=== PATIENT | male | born 1950 | race Caucasian/White ===

== ENCOUNTER → 2016-02-27 | Outpatient (REF) | payer OTHER ==
[~2016-02-27] MED LIST: ACET50TAOT PO; ADV250INH INH; ALBU17IN INH; ALBU83IN INH; AMBI10TA PO; BIAX1TAB PO; CEFD1CAP8 PO; CEFT500T PO; CEFU250T PO; DOUNEB; DOXY100T16 PO; FLON0.054; FLON1SPR; IPRASOL4 IN; IPRASOL4 NEB; NYST50SS SS; PRED10TA PO; PRED20TA PO; PRED20TAB PO; PRIL40CA PO; PRIM50TA2 PO; PROA1AER INH; SING10TA32 PO; TYLE325T5 PO; ZITH250T PO; [UNRECOGNIZED DRUG - OTHER]; ventolin neb INH
== END ==
LOC: M LAB REF 17:11
PROVIDERS: ATTEND Internal Medicine Pulmonary Disease
DX: J45.50 Severe persistent asthma, uncomplicated (principal)

== ENCOUNTER → 2016-04-09 | Outpatient (CLI) | payer OTHER ==
[~2016-04-09] MED LIST changes: -CEFT500T PO; +CEFT500T3 PO; -PRIM50TA2 PO; +PRIM50TA6 PO
== END ==
LOC: M WUC 09:10
PROVIDERS: ATTEND Internal Medicine Pulmonary Disease
DX: J45.50 Severe persistent asthma, uncomplicated (principal)

== ENCOUNTER → 2016-05-12 | Outpatient (CLI) | payer OTHER | LOC: M WUC 10:51 | PROVIDERS: ATTEND Internal Medicine Pulmonary Disease | DX: J45.50 Severe persistent asthma, uncomplicated (principal) ==

== ENCOUNTER → 2016-05-13 | Outpatient (CLI) | payer OTHER ==
[2016-05-13 10:11] LABS: MEAN CORPUSCULAR HEMOGLOBIN 28.7 pg (27.0-33.0); MEAN CORPUSCULAR VOLUME 84.4 fl (80.0-96.0); RED CELL DISTRIBUTION WIDTH 12.5 % (11.5-14.5); WHITE BLOOD COUNT 4.1 K/mm3 (4.0-10.0)
[2016-05-13 10:20] LABS: ALBUMIN 3.8 GM/DL (3.2-5.2); ALBUMIN/GLOBULIN RATIO 1.27 (1.00-1.93); ALKALINE PHOSPHATASE 54 U/L (45-117); ALT/SGPT 25 U/L (12-78); ANION GAP 5 MEQ/L (8-16); AST/SGOT 23 U/L (15-37); BILIRUBIN,TOTAL 0.4 MG/DL (0.2-1.0); BLOOD UREA NITROGEN 14 MG/DL (7-18); CARBON DIOXIDE LEVEL 32 MEQ/L (21-32); CHLORIDE LEVEL 108 MEQ/L (98-107); CHOLESTEROL LEVEL 223 MG/DL (<200); CREATININE FOR GFR 1.15 MG/DL (0.70-1.30); GLOMERULAR FILTRATION RATE > 60.0 (>49); GLUCOSE, FASTING 102 MG/DL (80-110); POTASSIUM SERUM 4.4 MEQ/L (3.5-5.1); SODIUM LEVEL 145 MEQ/L (136-145); TOTAL PROTEIN 6.8 GM/DL (6.4-8.2); TRIGLYCERIDES LEVEL 122 MG/DL (<150)
== END ==
LOC: M WUC 08:19
PROVIDERS: ATTEND Internal Medicine
DX: Z12.5 Encounter for screening for malignant neoplasm of prostate (principal); Z00.00 Encounter for general adult medical examination without abnormal findings

== ENCOUNTER → 2016-06-17 | Outpatient (CLI) | payer OTHER ==
--- NOTE | 2016-06-17 09:52 | REP ---
Chest two views HISTORY: Asthma Comparison: 03/19/2015 Linear densities are present in the lower lobes consistent with atelectasis or scar. The heart is normal in size. The pulmonary vasculature is normal in appearance. The bony structure is intact. IMPRESSION: Bibasilar atelectasis or scar. Signed by Clement Arvizu MD 06/17/2016 09:43 A
== END ==
LOC: M WUC 09:25
PROVIDERS: ATTEND Internal Medicine Pulmonary Disease
DX: J98.4 Other disorders of lung (principal); J45.50 Severe persistent asthma, uncomplicated

== ENCOUNTER → 2016-07-14 | Outpatient (CLI) | payer OTHER ==
--- NOTE | 2016-07-16 12:57 | SLEEPCENT ---
DATE OF PROCEDURE: 07/14/2016 ORDERED BY: Dr. Camejo Nocturnal polysomnography was performed for evaluation of sleep apnea syndrome symptoms in this patient with a history of excessive somnolence and nonrestorative sleep. 7 hours and 10 minutes of data were reviewed. There were 331 minutes of sleep identified. Sleep latency was normal at 13 minutes. Rapid eye movement (REM) latency was short at 52 minutes. Sleep architecture was fairly well preserved with 1 period of wake in the mid portion of the study. Overall sleep efficiency was 77%. There were 4 REM periods identified. Electrocardiogram (EKG) showed a sinus rhythm with a heart rate of 58 beats per minute. Heart rate ranged 50 to 80 beats per minute. Electroencephalogram (EEG) showed normal waveforms for awake and sleep. No focal events were identified. There were 57 respiratory events identified of 10 seconds in duration or greater for an apnea-hypopnea index of 10.3. The events were obstructive, not exclusive to sleep stage, but REM clustering was appreciated. There was no relationship to body posture. Arousals from respiratory events occurred 9.2 times per hour and oxygen desaturations were seen into the low 80s. There was snoring, but remaining measures of sleep physiology were otherwise normal. IMPRESSION: Obstructive sleep apnea syndrome (G47.33), apnea-hypopnea index of 10.3. RECOMMENDATION: The patient should be encouraged to return to the sleep disorder center for pressure therapy. In the interim, alcohol and sedative avoidance should be practiced and caution exercised during the operation of motor vehicles.
== END ==
LOC: M SLEEP 19:13
PROVIDERS: ATTEND Internal Medicine Pulmonary Disease
DX: G47.33 Obstructive sleep apnea (adult) (pediatric) (principal)

== ENCOUNTER → 2016-08-31 | Outpatient (CLI) | payer OTHER ==
[~2016-08-31] MED LIST changes: -BIAX1TAB PO; +BIAX500T13 PO; +CEFU1TAB20 PO; -CEFU250T PO; -PROA1AER INH; +PROAAER10 INH
--- NOTE | 2016-09-04 08:25 | SLEEPCENT ---
DATE OF STUDY: 08/31/2016 CPAP TITRATION ORDERED BY: Dr. Camejo Nocturnal polysomnography was performed for the titration of pressure therapy in this patient with obstructive sleep apnea syndrome apnea hypopnea index of 10. For testing, a ResMed Mirage FX nasal mask with standard size was used. 4 cm of water pressure were applied to the circuit and the lights were extinguished. 7 hours and 47 minutes of data were reviewed. Of these 389 minutes of sleep were identified. Sleep latency was short at 5 minutes. Rapid eye movement (REM) latency was normal at 82 minutes. Sleep architecture was improved with pressure therapy. There were 4 REM periods appreciated. Overall sleep efficiency 82.9%. The patient's EKG showed a sinus rhythm with an average heart rate of 62 beats per minute. EEG showed reasonably normal waveforms for awake and sleep. Respiratory events were best palliated with CPAP at pressure of about 6. There was little limb activity appreciated. IMPRESSION: Obstructive sleep apnea syndrome (G47.33). RECOMMENDATION: Nightly use of pressure therapy 6 cm of water. cc: Tyrese Meza MD
== END ==
LOC: M SLEEP 20:00
PROVIDERS: ATTEND Internal Medicine Pulmonary Disease
DX: R06.83 Snoring (principal)

== ENCOUNTER → 2016-09-12 | Outpatient (REF) | payer OTHER | LOC: M SFHCPLAZ 11:21 | PROVIDERS: ATTEND Nurse Practitioner Family | DX: R30.0 Dysuria (principal) ==

== ENCOUNTER → 2016-11-17 | Outpatient (CLI) | payer OTHER ==
[2016-11-17 13:50] LABS: MEAN CORPUSCULAR HEMOGLOBIN 27.9 pg (27.0-33.0); MEAN CORPUSCULAR HGB CONC 32.7 g/dl (32.0-36.5); MEAN CORPUSCULAR VOLUME 85.4 fl (80.0-96.0); RED CELL DISTRIBUTION WIDTH 12.5 % (11.5-14.5); WHITE BLOOD COUNT 4.2 10^3/uL (4.0-10.0)
[2016-11-17 14:50] LABS: ANION GAP 8 MEQ/L (8-16); BLOOD UREA NITROGEN 11 MG/DL (7-18); CALCIUM LEVEL 8.8 MG/DL (8.8-10.2); CARBON DIOXIDE LEVEL 28 MEQ/L (21-32); CHLORIDE LEVEL 104 MEQ/L (98-107); CREATININE FOR GFR 0.97 MG/DL (0.70-1.30); GLOMERULAR FILTRATION RATE > 60.0 (>49); GLUCOSE, FASTING 94 MG/DL (80-110); IMMUNOGLOBULIN G 1160 MG/DL (681-1648); POTASSIUM SERUM 4.6 MEQ/L (3.5-5.1); SODIUM LEVEL 140 MEQ/L (136-145)
== END ==
LOC: M SMT 10:08
PROVIDERS: ATTEND Nurse Practitioner Family
DX: D83.9 Common variable immunodeficiency, unspecified (principal)

== ENCOUNTER → 2017-01-12 | Outpatient (REF) | payer OTHER ==
[2017-01-12 12:25] LABS: MEAN CORPUSCULAR HEMOGLOBIN 27.8 pg (27.0-33.0); MEAN CORPUSCULAR HGB CONC 32.7 g/dl (32.0-36.5); PLATELET COUNT, AUTOMATED 263 10^3/uL (150-450); RED CELL DISTRIBUTION WIDTH 12.3 % (11.5-14.5); WHITE BLOOD COUNT 5.8 10^3/uL (4.0-10.0)
[2017-01-12 13:45] LABS: ALBUMIN 3.7 GM/DL (3.2-5.2); ALBUMIN/GLOBULIN RATIO 1.28 (1.00-1.93); ALKALINE PHOSPHATASE 49 U/L (45-117); ALT/SGPT 29 U/L (12-78); ANION GAP 5 MEQ/L (8-16); AST/SGOT 25 U/L (7-37); BILIRUBIN,TOTAL 0.3 MG/DL (0.2-1.0); BLOOD UREA NITROGEN 17 MG/DL (7-18); CALCIUM LEVEL 8.9 MG/DL (8.8-10.2); CARBON DIOXIDE LEVEL 30 MEQ/L (21-32); CHLORIDE LEVEL 106 MEQ/L (98-107); CREATININE FOR GFR 0.94 MG/DL (0.70-1.30); GLOMERULAR FILTRATION RATE > 60.0 (>49); GLUCOSE, FASTING 106 MG/DL (80-110); POTASSIUM SERUM 4.4 MEQ/L (3.5-5.1); SODIUM LEVEL 141 MEQ/L (136-145); TOTAL PROTEIN 6.6 GM/DL (6.4-8.2)
== END ==
LOC: M SFHCPLAZ 08:39
PROVIDERS: ATTEND Internal Medicine
DX: Z01.818 Encounter for other preprocedural examination (principal); J45.909 Unspecified asthma, uncomplicated

== ENCOUNTER 2017-02-06 07:23 | Day surgery (SDC) | payer OTHER ==
[~2017-02-06] VITALS: Ht 182.9 cm; Wt 86.2 kg
[~2017-02-06 07:23] MED LIST changes: +BUDE180INH INH; +FLOM5CAP PO; +SPIR12.9 INH; +ZOLP10TA2 PO
[2017-02-06] MEDS ORDERED: NS 1,000 ML IV ONE (07:45)
[2017-02-06] MEDS ORDERED: PROPOFOL 200 MG/20 ML VIAL As Ordered ONE ×2 (08:09→08:43)
--- NOTE | 2017-02-06 08:33 | ROOR ---
Patient Name: Neo Lopez Procedure Date: 02/06/2017 8:09 AM Date of : 1950 Age: 66 Room: [facility] Gender: Male Note Status: Finalized Procedure: Colonoscopy Indications: Screening for colorectal malignant neoplasm Providers: Luis DOYLE MD Referring MD: Tyrese Meza MD Requesting Provider: Medicines: Monitored Anesthesia Care Complications: No immediate complications. Procedure: Pre-Anesthesia Assessment: - The heart rate, respiratory rate, oxygen saturations, blood pressure, adequacy of pulmonary ventilation, and response to care were monitored throughout the procedure. The Colonoscope was introduced through the anus and advanced to the cecum, identified by appendiceal orifice and ileocecal valve. The colonoscopy was performed without difficulty. The patient tolerated the procedure well. The quality of the bowel preparation was inadequate. The bowel preparation used was SUPREP and Milk of magnesia. Findings: The perianal and digital rectal examinations were normal. (EXAM: Complete, PREP: Suboptimal) A 4 mm polyp was found in the anus. The polyp was sessile. The polyp was removed with a jumbo cold forceps. Resection and retrieval were complete. The exam was otherwise without abnormality. Impression: - (EXAM: Complete, PREP: Suboptimal) - One 4 mm polyp at the anus, removed with a jumbo cold forceps. Resected and retrieved. - The examination was otherwise normal. Recommendation: - Repeat colonoscopy in 1 year because the bowel preparation was suboptimal. Luis Doyle MD Luis DOYLE MD 02/06/2017 8:33:26 AM This report has been signed electronically. Number of Addenda: 0 Note Initiated On: 02/06/2017 8:09 AM Estimated Blood Loss: Estimated blood loss: none.
[2017-02-06 08:53] VITALS: BP 138/82
== END 2017-02-06 09:33 | disposition home or self-care (01) ==
LOC: M OPP 07:23
PROVIDERS: ATTEND Internal Medicine Gastroenterology
DX: Z12.11 Encounter for screening for malignant neoplasm of colon (principal); D12.9 Benign neoplasm of anus and anal canal; M19.90 Unspecified osteoarthritis, unspecified site; G47.00 Insomnia, unspecified; G25.0 Essential tremor; J45.909 Unspecified asthma, uncomplicated; D83.9 Common variable immunodeficiency, unspecified; G47.30 Sleep apnea, unspecified; Z98.1 Arthrodesis status; Z88.8 Allergy status to other drugs, medicaments and biological substances; Z79.899 Other long term (current) drug therapy; Z80.42 Family history of malignant neoplasm of prostate; Z80.3 Family history of malignant neoplasm of breast

== ENCOUNTER → 2017-05-01 | Outpatient (REF) | payer MEDICARE ==
[2017-05-01 12:23] LABS: HEMATOCRIT 46.2 % (42.0-52.0); HEMOGLOBIN 15.3 g/dl (14.0-18.0); MEAN CORPUSCULAR HEMOGLOBIN 27.8 pg (27.0-33.0); MEAN CORPUSCULAR HGB CONC 33.1 g/dl (32.0-36.5); PLATELET COUNT, AUTOMATED 252 10^3/uL (150-450); RED CELL DISTRIBUTION WIDTH 12.4 % (11.5-14.5); WHITE BLOOD COUNT 3.8 10^3/uL (4.0-10.0)
[2017-05-01 12:27] LABS: ALBUMIN 3.9 GM/DL (3.2-5.2); ALBUMIN/GLOBULIN RATIO 1.15 (1.00-1.93); ALKALINE PHOSPHATASE 65 U/L (45-117); ALT/SGPT 28 U/L (12-78); ANION GAP 6 MEQ/L (8-16); AST/SGOT 26 U/L (7-37); BILIRUBIN,TOTAL 0.4 MG/DL (0.2-1.0); BLOOD UREA NITROGEN 15 MG/DL (7-18); CALCIUM LEVEL 8.7 MG/DL (8.8-10.2); CARBON DIOXIDE LEVEL 30 MEQ/L (21-32); CHLORIDE LEVEL 107 MEQ/L (98-107); CHOLESTEROL LEVEL 213 MG/DL (<200); CHOLESTEROL RISK RATIO 3.491 (<5); CREATININE FOR GFR 0.89 MG/DL (0.70-1.30); GLOMERULAR FILTRATION RATE > 60.0 (>49); GLUCOSE, FASTING 104 MG/DL (70-100); HDL CHOLESTEROL 61 MG/DL (>40); LDL CHOLESTEROL 133.4 MG/DL (<100); MAGNESIUM LEVEL 2.5 MG/DL (1.8-2.4); NON-HDL-C 152 MG/DL; POTASSIUM SERUM 4.5 MEQ/L (3.5-5.1); PSA SCREENING 1.78 NG/ML (< 4.0); SODIUM LEVEL 143 MEQ/L (136-145); TOTAL PROTEIN 7.3 GM/DL (6.4-8.2); TRIGLYCERIDES LEVEL 93 MG/DL (<150)
== END ==
LOC: M SFHCPLAZ 10:15
DX: Z00.00 Encounter for general adult medical examination without abnormal findings (principal); D84.9 Immunodeficiency, unspecified; E78.00 Pure hypercholesterolemia, unspecified; J45.909 Unspecified asthma, uncomplicated; N40.1 Benign prostatic hyperplasia with lower urinary tract symptoms
CPT/HCPCS: 83735

== ENCOUNTER → 2017-05-08 | Outpatient (REF) | payer MEDICARE ==
[2017-05-08 13:38] LABS: APPEARANCE, URINE HAZY (CLEAR); BACTERIA, URINE AUTO NEGATIVE (NEGATIVE); BILIRUBIN, URINE AUTO NEGATIVE (NEGATIVE); BLOOD, URINE BLOOD NEGATIVE (NEGATIVE); COLOR, URINE AMBER (YELLOW); GLUCOSE, URINE (UA) AUTO NEGATIVE (NEGATIVE); KETONE, URINE AUTO NEGATIVE (NEGATIVE); LEUKOCYTE ESTERASE, URINE AUTO NEGATIVE (NEGATIVE); MUCUS, URINE SMALL (NEGATIVE); NITRITE, URINE AUTO NEGATIVE (NEGATIVE); PROTEIN, URINE AUTO NEGATIVE (NEGATIVE); RBC, URINE AUTO 2 /HPF (0-3); SPECIFIC GRAVITY URINE AUTO 1.023 (1.002-1.035); SQUAMOUS EPITHELIAL CELL UR AU 0 /HPF (0-6); UROBILINOGEN, URINE AUTO 0.2 mg/dL (0.0-2.0); WBC, URINE AUTO 2 /HPF (0-3)
== END ==
LOC: M SMT 12:53
DX: N40.1 Benign prostatic hyperplasia with lower urinary tract symptoms (principal)
CPT/HCPCS: 81001

== ENCOUNTER → 2017-05-14 | Outpatient (CLI) | payer MEDICARE | LOC: M SMT 12:44 | DX: N40.1 Benign prostatic hyperplasia with lower urinary tract symptoms (principal); N32.3 Diverticulum of bladder | CPT/HCPCS: 76857 ==

== ENCOUNTER → 2017-06-12 | Outpatient (CLI) | payer MEDICARE ==
[2017-06-12 12:53] LABS: HEMATOCRIT 46.2 % (42.0-52.0); HEMOGLOBIN 15.2 g/dl (13.5-17.5); MEAN CORPUSCULAR HGB CONC 32.9 g/dl (32.0-36.5); MEAN CORPUSCULAR VOLUME 85.2 fl (80.0-96.0); PLATELET COUNT, AUTOMATED 248 10^3/uL (150-450); RED BLOOD COUNT 5.42 10^6/uL (4.30-6.10); RED CELL DISTRIBUTION WIDTH 12.7 % (11.5-14.5); WHITE BLOOD COUNT 3.6 10^3/uL (4.0-10.0)
[2017-06-12 13:03] LABS: APPEARANCE, URINE CLOUDY (CLEAR); BACTERIA, URINE AUTO NEGATIVE (NEGATIVE); BILIRUBIN, URINE AUTO NEGATIVE (NEGATIVE); BLOOD, URINE BLOOD NEGATIVE (NEGATIVE); COLOR, URINE AMBER (YELLOW); GLUCOSE, URINE (UA) AUTO NEGATIVE (NEGATIVE); KETONE, URINE AUTO NEGATIVE (NEGATIVE); LEUKOCYTE ESTERASE, URINE AUTO NEGATIVE (NEGATIVE); MUCUS, URINE SMALL (NEGATIVE); NITRITE, URINE AUTO NEGATIVE (NEGATIVE); PROTEIN, URINE AUTO NEGATIVE (NEGATIVE); RBC, URINE AUTO 0 /HPF (0-3); SQUAMOUS EPITHELIAL CELL UR AU 0 /HPF (0-6); UROBILINOGEN, URINE AUTO 0.2 mg/dL (0.0-2.0); WBC, URINE AUTO 2 /HPF (0-3)
[2017-06-12 13:15] LABS: ANION GAP 4 MEQ/L (8-16); BLOOD UREA NITROGEN 17 MG/DL (7-18); CARBON DIOXIDE LEVEL 32 MEQ/L (21-32); CHLORIDE LEVEL 108 MEQ/L (98-107); CREATININE FOR GFR 0.96 MG/DL (0.70-1.30); GLOMERULAR FILTRATION RATE > 60.0 (>49); GLUCOSE, FASTING 91 MG/DL (70-100); POTASSIUM SERUM 4.7 MEQ/L (3.5-5.1); SODIUM LEVEL 144 MEQ/L (136-145)
[2017-06-12 13:16] LABS: PARTIAL THROMBOPLASTIN TIME 28.7 SECONDS (26.8-37.9); PROTHROMBIN TIME 13.3 SECONDS (12.4-14.5)
== END ==
LOC: M SMT 08:42
DX: Z01.818 Encounter for other preprocedural examination (principal); N40.1 Benign prostatic hyperplasia with lower urinary tract symptoms; N13.8 Other obstructive and reflux uropathy
CPT/HCPCS: 80048

== ENCOUNTER → 2017-07-06 | Outpatient (REF) | payer MEDICARE | LOC: M SMT 12:53 | DX: N40.1 Benign prostatic hyperplasia with lower urinary tract symptoms (principal) | CPT/HCPCS: 87086 ==

== ENCOUNTER → 2017-08-20 | Outpatient (REF) | payer MEDICARE ==
[2017-08-20 13:49] LABS: APPEARANCE, URINE HAZY (CLEAR); BACTERIA, URINE AUTO 1+ (NEGATIVE); BILIRUBIN, URINE AUTO NEGATIVE (NEGATIVE); BLOOD, URINE BLOOD 1+ (NEGATIVE); COLOR, URINE AMBER (YELLOW); GLUCOSE, URINE (UA) AUTO NEGATIVE (NEGATIVE); KETONE, URINE AUTO NEGATIVE (NEGATIVE); LEUKOCYTE ESTERASE, URINE AUTO 2+ (NEGATIVE); MUCUS, URINE SMALL (NEGATIVE); NITRITE, URINE AUTO NEGATIVE (NEGATIVE); PROTEIN, URINE AUTO NEGATIVE (NEGATIVE); RBC, URINE AUTO 69 /HPF (0-3); SPECIFIC GRAVITY URINE AUTO 1.023 (1.002-1.035); SQUAMOUS EPITHELIAL CELL UR AU 1 /HPF (0-6); UROBILINOGEN, URINE AUTO 0.2 mg/dL (0.0-2.0); WBC, URINE AUTO 27 /HPF (0-3)
== END ==
LOC: M SMT 13:13
DX: N40.1 Benign prostatic hyperplasia with lower urinary tract symptoms (principal)
CPT/HCPCS: 81001

== ENCOUNTER 2017-08-26 09:54 | Emergency (ER) | payer MEDICARE ==
[2017-08-26] MEDS: ONDANSETRON 4MG/2ML VIAL (J2405) IV (10:29)
[2017-08-26] MEDS: NS 1,000 ML IV (10:29)
[2017-08-26] MEDS: KETOROLAC 30 MG/ML VIAL (J1885) IV (10:29)
[2017-08-26 10:40] LABS: BASO % 0.3 % (0.0-1.0); EOS % 0.1 % (0.0-3.0); HEMATOCRIT 42.2 % (42.0-52.0); HEMOGLOBIN 14.3 g/dl (13.5-17.5); IMMATURE GRANULOCYTE % 0.4 % (0-3.0); LYMPH # 0.7 10^3/uL (1.5-4.5); LYMPH % 5.1 % (24.0-44.0); MEAN CORPUSCULAR HEMOGLOBIN 28.3 pg (27.0-33.0); MEAN CORPUSCULAR HGB CONC 33.9 g/dl (32.0-36.5); MEAN CORPUSCULAR VOLUME 83.6 fl (80.0-96.0); MONO % 7.4 % (0.0-5.0); NEUTROPHILS # 11.9 10^3/uL (1.8-7.7); NEUTROPHILS % 86.7 % (36.0-66.0); PLATELET COUNT, AUTOMATED 211 10^3/uL (150-450); RED BLOOD COUNT 5.05 10^6/uL (4.30-6.10); RED CELL DISTRIBUTION WIDTH 12.6 % (11.5-14.5); WHITE BLOOD COUNT 13.7 10^3/uL (4.0-10.0)
[2017-08-26 10:53] LABS: APPEARANCE, URINE CLOUDY (CLEAR); BACTERIA, URINE AUTO 3+ (NEGATIVE); BILIRUBIN, URINE AUTO NEGATIVE (NEGATIVE); BLOOD, URINE BLOOD NEGATIVE (NEGATIVE); COLOR, URINE AMBER (YELLOW); GLUCOSE, URINE (UA) AUTO NEGATIVE (NEGATIVE); KETONE, URINE AUTO TRACE mg/dL (NEGATIVE); LEUKOCYTE ESTERASE, URINE AUTO 2+ (NEGATIVE); MUCUS, URINE MODERATE (NEGATIVE); NITRITE, URINE AUTO POSITIVE (NEGATIVE); PROTEIN, URINE AUTO 2+ mg/dL (NEGATIVE); RBC, URINE AUTO 51 /HPF (0-3); SPECIFIC GRAVITY URINE AUTO 1.021 (1.002-1.035); SQUAMOUS EPITHELIAL CELL UR AU 0 /HPF (0-6); WBC, URINE AUTO TNTC /HPF (0-3)
[2017-08-26 10:55] LABS: ANION GAP 7 MEQ/L (8-16); BLOOD UREA NITROGEN 17 MG/DL (7-18); CALCIUM LEVEL 8.5 MG/DL (8.8-10.2); CARBON DIOXIDE LEVEL 28 MEQ/L (21-32); CHLORIDE LEVEL 103 MEQ/L (98-107); CREATININE FOR GFR 1.07 MG/DL (0.70-1.30); GLOMERULAR FILTRATION RATE > 60.0 (>49); GLUCOSE, FASTING 113 MG/DL (70-100); POTASSIUM SERUM 3.8 MEQ/L (3.5-5.1); SODIUM LEVEL 138 MEQ/L (136-145)
[2017-08-26] MEDS: cefTRIAXone SOD 1 GM in D5W MINI-BAG PLUS 50 ML IV (11:27)
== END 2017-08-26 12:07 | disposition home or self-care (01) ==
LOC: M ED 09:54
DX: N40.1 Benign prostatic hyperplasia with lower urinary tract symptoms (principal); N30.01 Acute cystitis with hematuria; J45.909 Unspecified asthma, uncomplicated; Z88.1 Allergy status to other antibiotic agents; Z88.8 Allergy status to other drugs, medicaments and biological substances; Z79.899 Other long term (current) drug therapy; Z79.51 Long term (current) use of inhaled steroids
CPT/HCPCS: J2405

== ENCOUNTER → 2017-09-16 | Outpatient (REF) | payer MEDICARE ==
[2017-09-16 12:28] LABS: HEMATOCRIT 39.2 % (42.0-52.0); HEMOGLOBIN 12.7 g/dl (13.5-17.5); MEAN CORPUSCULAR HEMOGLOBIN 27.9 pg (27.0-33.0); MEAN CORPUSCULAR HGB CONC 32.4 g/dl (32.0-36.5); PLATELET COUNT, AUTOMATED 267 10^3/uL (150-450); RED BLOOD COUNT 4.56 10^6/uL (4.30-6.10); RED CELL DISTRIBUTION WIDTH 12.8 % (11.5-14.5)
[2017-09-16 12:41] LABS: ALBUMIN 3.3 GM/DL (3.2-5.2); ALBUMIN/GLOBULIN RATIO 1.03 (1.00-1.93); ALKALINE PHOSPHATASE 60 U/L (45-117); ALT/SGPT 26 U/L (12-78); ANION GAP 5 MEQ/L (8-16); AST/SGOT 20 U/L (7-37); BILIRUBIN,TOTAL 0.2 MG/DL (0.2-1.0); BLOOD UREA NITROGEN 14 MG/DL (7-18); CALCIUM LEVEL 8.3 MG/DL (8.8-10.2); CARBON DIOXIDE LEVEL 30 MEQ/L (21-32); CHLORIDE LEVEL 108 MEQ/L (98-107); GLOMERULAR FILTRATION RATE > 60.0 (>49); GLUCOSE, FASTING 91 MG/DL (70-100); POTASSIUM SERUM 4.5 MEQ/L (3.5-5.1); SODIUM LEVEL 143 MEQ/L (136-145); TOTAL PROTEIN 6.5 GM/DL (6.4-8.2)
== END ==
LOC: M SFHCPLAZ 08:32
DX: Z01.818 Encounter for other preprocedural examination (principal); I10 Essential (primary) hypertension; J45.909 Unspecified asthma, uncomplicated
CPT/HCPCS: 80053

== ENCOUNTER → 2017-11-12 | Outpatient (REF) | payer MEDICARE ==
[2017-11-12 13:19] LABS: APPEARANCE, URINE CLOUDY (CLEAR); BACTERIA, URINE AUTO 1+ (NEGATIVE); BILIRUBIN, URINE AUTO NEGATIVE (NEGATIVE); BLOOD, URINE BLOOD NEGATIVE (NEGATIVE); COLOR, URINE YELLOW (YELLOW); GLUCOSE, URINE (UA) AUTO NEGATIVE (NEGATIVE); KETONE, URINE AUTO NEGATIVE (NEGATIVE); LEUKOCYTE ESTERASE, URINE AUTO 3+ (NEGATIVE); MUCUS, URINE SMALL (NEGATIVE); NITRITE, URINE AUTO NEGATIVE (NEGATIVE); PROTEIN, URINE AUTO 2+ mg/dL (NEGATIVE); RBC, URINE AUTO 22 /HPF (0-3); SPECIFIC GRAVITY URINE AUTO 1.015 (1.002-1.035); SQUAMOUS EPITHELIAL CELL UR AU 0 /HPF (0-6); UROBILINOGEN, URINE AUTO 0.2 mg/dL (0.0-2.0); WBC, URINE AUTO TNTC /HPF (0-3)
== END ==
LOC: M SFHCPLAZ 12:23
DX: R30.0 Dysuria (principal)
CPT/HCPCS: 81001

== ENCOUNTER → 2017-11-24 | Outpatient (CLI) | payer MEDICARE ==
[2017-11-24 12:51] LABS: BASO # 0.1 10^3/uL (0.0-0.2); BASO % 1.9 % (0.0-1.0); EOS # 0.2 10^3/uL (0.0-0.50); EOS % 6.2 % (0.0-3.0); HEMATOCRIT 42.7 % (42.0-52.0); IMMATURE GRANULOCYTE % 0.3 % (0-3.0); LYMPH # 1.3 10^3/uL (1.5-4.5); LYMPH % 38.8 % (24.0-44.0); MEAN CORPUSCULAR HEMOGLOBIN 27.9 pg (27.0-33.0); MEAN CORPUSCULAR HGB CONC 32.8 g/dl (32.0-36.5); MEAN CORPUSCULAR VOLUME 85.2 fl (80.0-96.0); MONO # 0.4 10^3/uL (0.0-0.8); MONO % 11.5 % (0.0-5.0); NEUTROPHILS # 1.3 10^3/uL (1.8-7.7); NEUTROPHILS % 41.3 % (36.0-66.0); PLATELET COUNT, AUTOMATED 241 10^3/uL (150-450); RED BLOOD COUNT 5.01 10^6/uL (4.30-6.10); RED CELL DISTRIBUTION WIDTH 12.9 % (11.5-14.5); WHITE BLOOD COUNT 3.2 10^3/uL (4.0-10.0)
[2017-11-24 13:00] LABS: ANION GAP 7 MEQ/L (8-16); BLOOD UREA NITROGEN 12 MG/DL (7-18); CALCIUM LEVEL 8.3 MG/DL (8.8-10.2); CARBON DIOXIDE LEVEL 28 MEQ/L (21-32); CHLORIDE LEVEL 105 MEQ/L (98-107); CREATININE FOR GFR 0.97 MG/DL (0.70-1.30); GLOMERULAR FILTRATION RATE > 60.0 (>49); GLUCOSE, FASTING 76 MG/DL (70-100); POTASSIUM SERUM 4.7 MEQ/L (3.5-5.1); SODIUM LEVEL 140 MEQ/L (136-145)
[2017-11-24 14:29] LABS: IMMUNOGLOBULIN G 1240 MG/DL (681-1648)
== END ==
LOC: M WUC 09:06
DX: D83.9 Common variable immunodeficiency, unspecified (principal)
CPT/HCPCS: 82784

== ENCOUNTER → 2018-03-24 | Outpatient (CLI) | payer MEDICARE ==
[~2018-03-24] MED LIST changes: +ACET500T15 PO; -ACET50TAOT PO; +ADVA230A INH; -BIAX500T13 PO; +BIAX500T14 PO; +FLOM0.4C39 PO; -FLOM5CAP PO; +HIZE20IN SC; +IPRA0.00 IN; +IPRA0.00 NEB; -IPRASOL4 IN; -IPRASOL4 NEB; +KEFL500C17 PO; +LISI-538 PO
== END ==
LOC: M WUC 10:44
PROVIDERS: ATTEND Urology
DX: N40.1 Benign prostatic hyperplasia with lower urinary tract symptoms (principal)

== ENCOUNTER 2018-04-15 08:16 | Day surgery (SDC) | payer MEDICARE ==
[~2018-04-15] VITALS: Ht 182.9 cm; Wt 83.5 kg
[~2018-04-15 08:16] MED LIST changes: +VENTAER INH; +VITA400C7 PO; +VITA500T PO; +VITATAB11 PO
[2018-04-15] MEDS ORDERED: NS 1,000 ML IV ONE (09:30)
[2018-04-15] MEDS ORDERED: PROPOFOL 200 MG/20 ML VIAL As Ordered ONE (10:27)
[2018-04-15] MEDS ORDERED: LIDOCAINE 2% INJ 100 MG/5 ML SDV (FOR ANES.) As Ordered ONE (10:27)
--- NOTE | 2018-04-15 10:44 | ROOR ---
Patient Name: Neo Lopez Procedure Date: 04/15/2018 10:25 AM Date of : 1950 Age: 67 Room: [facility] Gender: Male Note Status: Finalized Procedure: Colonoscopy Indications: High risk colon cancer surveillance: Personal history of colonic polyps, Surveillance: Personal history of colonic polyps with unknown histology on last colonoscopy (inadequate bowel preparation) less than 3 years ago, Last colonoscopy: January 2017 Providers: Luis DOYLE MD Referring MD: Tyrese Meza MD Requesting Provider: Medicines: Monitored Anesthesia Care Complications: No immediate complications. Procedure: Pre-Anesthesia Assessment: - The heart rate, respiratory rate, oxygen saturations, blood pressure, adequacy of pulmonary ventilation, and response to care were monitored throughout the procedure. The Colonoscope was introduced through the anus and advanced to the cecum, identified by appendiceal orifice and ileocecal valve. The colonoscopy was performed without difficulty. The patient tolerated the procedure well. The quality of the bowel preparation was good. Findings: The perianal and digital rectal examinations were normal. Retroflexion in the right colon was performed. Internal hemorrhoids were found during retroflexion. The hemorrhoids were moderate. The entire examined colon appeared normal on direct and retroflexion views. Impression: - Internal hemorrhoids. - The entire colon is normal on direct and retroflexion views. - No specimens collected. Recommendation: - Repeat colonoscopy in 10 years for screening purposes. Luis Doyle MD Luis DOYLE MD 04/15/2018 10:43:45 AM This report has been signed electronically. Number of Addenda: 0 Note Initiated On: 04/15/2018 10:25 AM Estimated Blood Loss: Estimated blood loss: none.
[2018-04-15 11:04] VITALS: BP 169/95
== END 2018-04-15 11:15 | disposition home or self-care (01) ==
LOC: M OPP 08:16
PROVIDERS: ATTEND Internal Medicine Gastroenterology
DX: K64.8 Other hemorrhoids (principal); Z86.010 Personal history of colon polyps

== ENCOUNTER → 2018-05-20 | Outpatient (CLI) | payer MEDICARE ==
[2018-05-20 10:03] LABS: ALBUMIN 3.7 GM/DL (3.2-5.2); ALT/SGPT 40 U/L (12-78); BILIRUBIN,TOTAL 0.4 MG/DL (0.2-1.0); BLOOD UREA NITROGEN 15 MG/DL (7-18); CALCIUM LEVEL 8.8 MG/DL (8.8-10.2); CARBON DIOXIDE LEVEL 31 MEQ/L (21-32); CHLORIDE LEVEL 106 MEQ/L (98-107); CHOLESTEROL LEVEL 205 MG/DL (<200); CHOLESTEROL RISK RATIO 3.534 (<5); CREATININE FOR GFR 1.03 MG/DL (0.70-1.30); GLOMERULAR FILTRATION RATE > 60.0 (>49); GLUCOSE, FASTING 97 MG/DL (70-100); HDL CHOLESTEROL 58 MG/DL (>40); LDL CHOLESTEROL 130 MG/DL (<100); MAGNESIUM LEVEL 2.4 MG/DL (1.8-2.4); NON-HDL-C 147 MG/DL; POTASSIUM SERUM 4.7 MEQ/L (3.5-5.1); SODIUM LEVEL 141 MEQ/L (136-145); TOTAL PROTEIN 6.7 GM/DL (6.4-8.2); TRIGLYCERIDES LEVEL 83 MG/DL (<150)
== END ==
LOC: M WUC 08:05
PROVIDERS: ATTEND Internal Medicine
DX: I10 Essential (primary) hypertension (principal); E78.00 Pure hypercholesterolemia, unspecified

== ENCOUNTER → 2018-11-15 | Outpatient (CLI) | payer MEDICARE ==
[~2018-11-15] MED LIST changes: +PRED-351 PO; -PRED10TA PO
[2018-11-15 13:58] LABS: BASO # 0.1 10^3/uL (0.0-0.2); BASO % 1.2 % (0.0-1.0); EOS # 0.2 10^3/uL (0.0-0.5); EOS % 4.4 % (0.0-3.0); HEMATOCRIT 42.9 % (42.0-52.0); HEMOGLOBIN 14.3 g/dl (13.5-17.5); LYMPH # 1.5 10^3/uL (1.5-5.0); LYMPH % 33.9 % (24.0-44.0); MEAN CORPUSCULAR HGB CONC 33.3 g/dl (32.0-36.5); MONO # 0.4 10^3/uL (0.0-0.8); MONO % 9.9 % (0.0-5.0); NEUTROPHILS # 2.2 10^3/uL (1.5-8.5); NEUTROPHILS % 50.4 % (36.0-66.0); PLATELET COUNT, AUTOMATED 250 10^3/uL (150-450); RED BLOOD COUNT 4.93 10^6/uL (4.30-6.10); WHITE BLOOD COUNT 4.3 10^3/uL (4.0-10.0)
[2018-11-15 14:04] LABS: ALBUMIN 3.6 GM/DL (3.2-5.2); ALT/SGPT 32 U/L (12-78); BILIRUBIN,TOTAL 0.3 MG/DL (0.2-1.0); BLOOD UREA NITROGEN 15 MG/DL (7-18); CALCIUM LEVEL 8.9 MG/DL (8.8-10.2); CARBON DIOXIDE LEVEL 27 MEQ/L (21-32); CHLORIDE LEVEL 107 MEQ/L (98-107); CREATININE FOR GFR 0.91 MG/DL (0.70-1.30); GLOMERULAR FILTRATION RATE > 60.0 (>49); GLUCOSE, FASTING 104 MG/DL (70-100); IMMUNOGLOBULIN G 1230 MG/DL (681-1648); POTASSIUM SERUM 4.2 MEQ/L (3.5-5.1); SODIUM LEVEL 140 MEQ/L (136-145); TOTAL PROTEIN 6.6 GM/DL (6.4-8.2)
== END ==
LOC: M WUC 11:54
PROVIDERS: ATTEND Nurse Practitioner Family
DX: D83.9 Common variable immunodeficiency, unspecified (principal)

== ENCOUNTER → 2019-06-15 | Outpatient (CLI) | payer MEDICARE ==
[~2019-06-15] MED LIST changes: -DOXY100T16 PO; +DOXY100T27 PO; +VITA-243 PO; -VITA500T PO
[2019-06-15 12:19] LABS: HEMATOCRIT 45.4 % (42.0-52.0); HEMOGLOBIN 14.7 g/dl (13.5-17.5); MEAN CORPUSCULAR HEMOGLOBIN 28.3 pg (27.0-33.0); MEAN CORPUSCULAR HGB CONC 32.4 g/dl (32.0-36.5); MEAN CORPUSCULAR VOLUME 87.3 fl (80.0-96.0); PLATELET COUNT, AUTOMATED 268 10^3/uL (150-450); WHITE BLOOD COUNT 4.1 10^3/uL (4.0-10.0)
[2019-06-15 12:36] LABS: ALBUMIN 3.7 GM/DL (3.2-5.2); ALT/SGPT 31 U/L (12-78); BILIRUBIN,TOTAL 0.4 MG/DL (0.2-1.0); BLOOD UREA NITROGEN 14 MG/DL (7-18); CALCIUM LEVEL 8.7 MG/DL (8.8-10.2); CARBON DIOXIDE LEVEL 29 MEQ/L (21-32); CHLORIDE LEVEL 108 MEQ/L (98-107); CHOLESTEROL LEVEL 248 MG/DL (<200); CHOLESTEROL RISK RATIO 3.815 (<5); CREATININE FOR GFR 0.89 MG/DL (0.70-1.30); GLOMERULAR FILTRATION RATE > 60.0 (>49); GLUCOSE, FASTING 96 MG/DL (70-100); HDL CHOLESTEROL 65 MG/DL (>40); LDL CHOLESTEROL 163 MG/DL (<100); MAGNESIUM LEVEL 2.1 MG/DL (1.8-2.4); NON-HDL-C 183 MG/DL; POTASSIUM SERUM 4.5 MEQ/L (3.5-5.1); SODIUM LEVEL 140 MEQ/L (136-145); TOTAL PROTEIN 7.2 GM/DL (6.4-8.2); TRIGLYCERIDES LEVEL 98 MG/DL (<150)
== END ==
LOC: M WUC 09:07
PROVIDERS: ATTEND Internal Medicine
DX: I10 Essential (primary) hypertension (principal); G25.0 Essential tremor; E78.00 Pure hypercholesterolemia, unspecified; J45.909 Unspecified asthma, uncomplicated
CPT/HCPCS: 36415; 80053; 80061; 83735; 84443; 85027; G0103

== ENCOUNTER → 2019-11-30 | Outpatient (CLI) | payer MEDICARE ==
[2019-11-30 09:59] LABS: BASO # 0.1 10^3/uL (0.0-0.2); BASO % 1.6 % (0.0-1.0); EOS # 0.2 10^3/uL (0.0-0.5); EOS % 3.8 % (0.0-3.0); HEMATOCRIT 45.1 % (42.0-52.0); HEMOGLOBIN 14.7 g/dl (13.5-17.5); LYMPH # 1.3 10^3/uL (1.5-5.0); LYMPH % 29.8 % (24.0-44.0); MEAN CORPUSCULAR HEMOGLOBIN 28.3 pg (27.0-33.0); MEAN CORPUSCULAR HGB CONC 32.6 g/dl (32.0-36.5); MEAN CORPUSCULAR VOLUME 86.7 fl (80.0-96.0); MONO # 0.5 10^3/uL (0.0-0.8); MONO % 10.6 % (0.0-5.0); NEUTROPHILS # 2.4 10^3/uL (1.5-8.5); NEUTROPHILS % 54.2 % (36.0-66.0); PLATELET COUNT, AUTOMATED 275 10^3/uL (150-450); WHITE BLOOD COUNT 4.4 10^3/uL (4.0-10.0)
[2019-11-30 11:11] LABS: ALBUMIN 3.6 GM/DL (3.2-5.2); ALT/SGPT 31 U/L (12-78); BILIRUBIN,TOTAL 0.5 MG/DL (0.2-1.0); BLOOD UREA NITROGEN 13 MG/DL (7-18); CALCIUM LEVEL 8.9 MG/DL (8.8-10.2); CARBON DIOXIDE LEVEL 30 MEQ/L (21-32); CHLORIDE LEVEL 105 MEQ/L (98-107); CREATININE FOR GFR 0.94 MG/DL (0.70-1.30); GLOMERULAR FILTRATION RATE > 60.0 (>49); GLUCOSE, FASTING 96 MG/DL (70-100); IMMUNOGLOBULIN G 1200 MG/DL (681-1648); POTASSIUM SERUM 4.1 MEQ/L (3.5-5.1); SODIUM LEVEL 139 MEQ/L (136-145); TOTAL PROTEIN 6.9 GM/DL (6.4-8.2)
== END ==
LOC: M WUC 08:20
DX: D83.9 Common variable immunodeficiency, unspecified (principal)

== ENCOUNTER → 2020-06-18 | Outpatient (CLI) | payer MEDICARE ==
[~2020-06-18] MED LIST changes: -LISI-538 PO; +LISI20TA33 PO
[2020-06-18 11:03] LABS: HEMATOCRIT 45.7 % (42.0-52.0); HEMOGLOBIN 14.9 g/dl (13.5-17.5); MEAN CORPUSCULAR HEMOGLOBIN 28.3 pg (27.0-33.0); MEAN CORPUSCULAR HGB CONC 32.6 g/dl (32.0-36.5); MEAN CORPUSCULAR VOLUME 86.7 fl (80.0-96.0); PLATELET COUNT, AUTOMATED 272 10^3/uL (150-450); RED BLOOD COUNT 5.27 10^6/uL (4.30-6.10); WHITE BLOOD COUNT 4.4 10^3/uL (4.0-10.0)
[2020-06-18 11:43] LABS: ALBUMIN 3.9 GM/DL (3.2-5.2); ALT/SGPT 32 U/L (12-78); BILIRUBIN,TOTAL 0.4 MG/DL (0.2-1.0); BLOOD UREA NITROGEN 15 MG/DL (7-18); CALCIUM LEVEL 8.9 MG/DL (8.8-10.2); CARBON DIOXIDE LEVEL 29 MEQ/L (21-32); CHLORIDE LEVEL 106 MEQ/L (98-107); CHOLESTEROL LEVEL 242 MG/DL (<200); CHOLESTEROL RISK RATIO 3.507 (<5); CREATININE FOR GFR 0.96 MG/DL (0.70-1.30); GLOMERULAR FILTRATION RATE > 60.0 (>49); GLUCOSE, FASTING 107 MG/DL (70-100); HDL CHOLESTEROL 69 MG/DL (>40); LDL CHOLESTEROL 157 MG/DL (<100); NON-HDL-C 173 MG/DL; POTASSIUM SERUM 4.3 MEQ/L (3.5-5.1); SODIUM LEVEL 141 MEQ/L (136-145); TOTAL PROTEIN 7.2 GM/DL (6.4-8.2); TRIGLYCERIDES LEVEL 79 MG/DL (<150)
== END ==
LOC: M WUC 08:05
PROVIDERS: ATTEND Internal Medicine
DX: I10 Essential (primary) hypertension (principal); E78.00 Pure hypercholesterolemia, unspecified; J45.909 Unspecified asthma, uncomplicated; Z12.5 Encounter for screening for malignant neoplasm of prostate
CPT/HCPCS: 36415; 80053; 80061; 85027; G0103

== ENCOUNTER → 2020-10-21 | Outpatient (CLI) | payer MEDICARE ==
--- NOTE | 2020-10-22 16:03 | SLEEPCENT ---
DATE: 10/21/2020 NOCTURNAL POLYSOMNOGRAPHY CPAP RE-TITRATION ORDERED BY: THEE KIMBROUGH DO, [facility] Nocturnal polysomnography was performed for the re-titration of pressure therapy in this patient with obstructive sleep apnea syndrome. For testing a ResMed AirTouch F20 full face mask of medium size was used, 4 cm of water pressure were applied to the circuit, and the lights were extinguished. Seven hours and 2 minutes of data were reviewed. There were 322 minutes of sleep identified. Sleep latency was short at 11 minutes. REM latency was short at 77.5 minutes. Sleep architecture was good with four REM cycles. Overall sleep efficiency was 77.3%. The electrocardiogram showed a sinus rhythm with an average heart rate of 60 beats per minute. EEG showed normal waveforms for wake and sleep. Respiratory events were fully palliated with CPAP at a pressure of 10. There was some minor limb activity early in the study. Limb movement arousal index on this occasion was 3.5. IMPRESSIONS: Obstructive sleep apnea syndrome (G47.33). RECOMMENDATION: Nightly use of pressure therapy 10 cm of water. cc: ALEX GUZMAN MD
== END ==
LOC: M SLEEP 10-19 20:00
PROVIDERS: ATTEND Physician Assistant
DX: G47.33 Obstructive sleep apnea (adult) (pediatric) (principal)

== ENCOUNTER → 2021-06-20 | Outpatient (CLI) | payer MEDICARE, BC ==
[~2021-06-20] MED LIST changes: -CEFD1CAP8 PO; +CEFD300C41 PO
[2021-06-20 10:23] LABS: BASO # 0.1 10^3/uL (0.0-0.2); BASO % 1.4 % (0.0-1.0); EOS # 0.2 10^3/uL (0.0-0.5); EOS % 3.9 % (0.0-3.0); HEMATOCRIT 47.3 % (42.0-52.0); HEMOGLOBIN 15.6 g/dl (13.5-17.5); LYMPH # 1.2 10^3/uL (1.5-5.0); LYMPH % 22.8 % (24.0-44.0); MEAN CORPUSCULAR HEMOGLOBIN 27.8 pg (27.0-33.0); MEAN CORPUSCULAR VOLUME 84.3 fl (80.0-96.0); MONO # 0.5 10^3/uL (0.0-0.8); MONO % 10.1 % (2.0-8.0); NEUTROPHILS # 3.2 10^3/uL (1.5-8.5); NEUTROPHILS % 61.8 % (36.0-66.0); PLATELET COUNT, AUTOMATED 292 10^3/uL (150-450); RED BLOOD COUNT 5.61 10^6/uL (4.30-6.10); WHITE BLOOD COUNT 5.2 10^3/uL (4.0-10.0)
[2021-06-20 10:30] LABS: ALT/SGPT 45 U/L (12-78); BILIRUBIN,TOTAL 0.5 MG/DL (0.2-1.0); BLOOD UREA NITROGEN 14 MG/DL (7-18); CALCIUM LEVEL 9.4 MG/DL (8.8-10.2); CARBON DIOXIDE LEVEL 30 MEQ/L (21-32); CHLORIDE LEVEL 108 MEQ/L (98-107); CHOLESTEROL LEVEL 242 MG/DL (<200); CHOLESTEROL RISK RATIO 3.903 (<5); CREATININE FOR GFR 0.88 MG/DL (0.70-1.30); GLOMERULAR FILTRATION RATE > 60.0 (>42); GLUCOSE, FASTING 104 MG/DL (70-100); HDL CHOLESTEROL 62 MG/DL (>40); LDL CHOLESTEROL 156 MG/DL (<100); MAGNESIUM LEVEL 2.6 MG/DL (1.8-2.4); NON-HDL-C 180 MG/DL; POTASSIUM SERUM 4.3 MEQ/L (3.5-5.1); PROSTATIC SPECIFIC AG MONITOR 1.77 NG/ML (< 4.00); SODIUM LEVEL 142 MEQ/L (136-145); TOTAL PROTEIN 7.3 GM/DL (6.4-8.2); TRIGLYCERIDES LEVEL 122 MG/DL (<150)
[2021-06-20 11:21] LABS: HEPATITIS C VIRUS ABY INDEX 0.1 INDEX (<0.8)
== END ==
LOC: M PLALAB 07:26
PROVIDERS: ATTEND Internal Medicine
DX: I10 Essential (primary) hypertension (principal); Z11.59 Encounter for screening for other viral diseases; E78.00 Pure hypercholesterolemia, unspecified; Z12.5 Encounter for screening for malignant neoplasm of prostate; M54.2 Cervicalgia; Z86.19 Personal history of other infectious and parasitic diseases

== ENCOUNTER → 2022-06-13 | Outpatient (REF) | payer MEDICARE, BC ==
[~2022-06-13] MED LIST changes: +ALBU2.5V10 INH; -ALBU83IN INH; +AMLO5CAP53 PO; +MONT-5 PO; +NOXI1TAB PO; +NYST-38 SS; -NYST50SS SS; +ROSU10TA6 PO; -SING10TA32 PO; +SYMB16INH INH
[2022-06-13 17:37] LABS: BASO # 0.1 10^3/uL (0.0-0.2); EOS # 0.4 10^3/uL (0.0-0.5); EOS % 5.3 % (0.0-3.0); HEMATOCRIT 45.3 % (42.0-52.0); HEMOGLOBIN 14.6 g/dl (13.5-17.5); LYMPH # 1.6 10^3/uL (1.5-5.0); LYMPH % 21.3 % (24.0-44.0); MEAN CORPUSCULAR HEMOGLOBIN 28.4 pg (27.0-33.0); MEAN CORPUSCULAR HGB CONC 32.2 g/dl (32.0-36.5); MEAN CORPUSCULAR VOLUME 88.1 fl (80.0-96.0); MONO # 0.7 10^3/uL (0.0-0.8); MONO % 9.8 % (2.0-8.0); NEUTROPHILS # 4.6 10^3/uL (1.5-8.5); NEUTROPHILS % 62.2 % (36.0-66.0); PLATELET COUNT, AUTOMATED 306 10^3/uL (150-450); RED BLOOD COUNT 5.14 10^6/uL (4.30-6.10); WHITE BLOOD COUNT 7.3 10^3/uL (4.0-10.0)
[2022-06-13 17:41] LABS: HEMOGLOBIN A1c 5.5 % (4.0-6.0)
[2022-06-13 17:43] LABS: INR 0.96
[2022-06-13 17:44] LABS: PARTIAL THROMBOPLASTIN TIME 26.6 SECONDS (24.8-34.2)
[2022-06-13 18:00] LABS: THYROID STIMULATING HORMONE 1.274 uIU/ML (0.55-4.78)
[2022-06-13 18:01] LABS: FREE T4 0.97 NG/DL (0.89-1.76)
[2022-06-13 18:02] LABS: ALBUMIN 3.9 G/DL (3.2-5.2); ALKALINE PHOSPHATASE 65 U/L (46-116); ALT/SGPT 33 U/L (7.0-40); AST/SGOT 29 U/L (<34); BILIRUBIN,TOTAL 0.3 MG/DL (0.3-1.2); BLOOD UREA NITROGEN 19 MG/DL (9-23); CALCIUM LEVEL 8.9 MG/DL (8.3-10.6); CARBON DIOXIDE LEVEL 30 MMOL/L (20-31); CHLORIDE LEVEL 106 MMOL/L (98-107); CHOLESTEROL LEVEL 207 MG/DL (<200); CHOLESTEROL RISK RATIO 3.91 (<5); CREATININE FOR GFR 0.91 MG/DL (0.70-1.30); GLOMERULAR FILTRATION RATE > 60.0 (>42); GLUCOSE, FASTING 95 MG/DL (74-106); HDL CHOLESTEROL 52.9 MG/DL (>40); LDL CHOLESTEROL 104.3 MG/DL (<100); NON-HDL-C 154.1 MG/DL; POTASSIUM SERUM 4.3 MMOL/L (3.5-5.1); SODIUM LEVEL 142 MMOL/L (136-145); TOTAL PROTEIN 6.9 G/DL (5.7-8.2); TRIGLYCERIDES LEVEL 249 MG/DL (<150)
== END ==
LOC: M SFHCPLAZ 16:53
PROVIDERS: ATTEND Family Medicine
DX: Z01.818 Encounter for other preprocedural examination (principal); I10 Essential (primary) hypertension; J45.30 Mild persistent asthma, uncomplicated; G47.33 Obstructive sleep apnea (adult) (pediatric)
CPT/HCPCS: 80053; 80061; 83036; 83880; 84439; 84443; 85025; 85610; 85730; G0103

== ENCOUNTER 2022-06-17 09:17 | Day surgery (SDC) | payer MEDICARE, BC ==
[~2022-06-17] VITALS: Ht 182.9 cm; Wt 90.2 kg
[~2022-06-17 09:17] MED LIST changes: +CEFUROXIME 1MG/0.1ML INTRACAMERAL INJ As Ordered ONE; +CYCLOPENTOLATE 1% OPHTH SOLN 2ML BTL OD SCH; +LIDOCAINE 1% SDV 5ML VIAL As Ordered ONE; +PHENYLEPHRINE 2.5% OPHTH SOL 2ML OD SCH; +PROPARACAINE 0.5% OPHTH SOL 15ML OD ONE; +TROPICAMIDE 1% OPHTH SOLN 15ML OD SCH
[2022-06-17] MEDS ORDERED: POLYTRIM OPTH DROPS 10ML OD SCH (10:10)
[2022-06-17] MEDS ORDERED: fentaNYL 100 MCG/2 ML INJECTION As Ordered ONE (10:18)
[2022-06-17] MEDS ORDERED: MIDAZOLAM INJ 2MG/2ML VIAL As Ordered ONE (10:18)
[2022-06-17] MEDS ORDERED: POLYTRIM OPTH DROPS 10ML As Ordered ONE (10:24)
[2022-06-17] MEDS ORDERED: BSS IRR 500ML/OMIDRIA 4ML IRR BAG (OR ONLY) As Ordered ONE (10:25)
[2022-06-17 11:52] VITALS: BP 166/92
== END 2022-06-17 11:55 | disposition home or self-care (01) ==
LOC: M SDC 09:17
PROVIDERS: ATTEND Ophthalmology
DX: H25.11 Age-related nuclear cataract, right eye (principal); I10 Essential (primary) hypertension; G47.33 Obstructive sleep apnea (adult) (pediatric); G25.0 Essential tremor; D83.9 Common variable immunodeficiency, unspecified; Z79.51 Long term (current) use of inhaled steroids; Z79.899 Other long term (current) drug therapy; J45.909 Unspecified asthma, uncomplicated; Z88.1 Allergy status to other antibiotic agents; Z88.8 Allergy status to other drugs, medicaments and biological substances
CPT/HCPCS: 66984; J0697; J1097; J2250; J3010; V2632

== ENCOUNTER → 2022-06-23 | Outpatient (CLI) | payer MEDICARE, BC ==
[~2022-06-23] MED LIST changes: -CEFUROXIME 1MG/0.1ML INTRACAMERAL INJ As Ordered ONE; -CYCLOPENTOLATE 1% OPHTH SOLN 2ML BTL OD SCH; -LIDOCAINE 1% SDV 5ML VIAL As Ordered ONE; -PHENYLEPHRINE 2.5% OPHTH SOL 2ML OD SCH; -PROPARACAINE 0.5% OPHTH SOL 15ML OD ONE; -TROPICAMIDE 1% OPHTH SOLN 15ML OD SCH
== END ==
LOC: M LAB 10:10
PROVIDERS: ATTEND Urology
DX: Z12.5 Encounter for screening for malignant neoplasm of prostate (principal)
CPT/HCPCS: 36415; G0103

== ENCOUNTER 2022-07-15 07:22 | Day surgery (SDC) | payer MEDICARE, BC ==
[~2022-07-15] VITALS: Ht 182.9 cm; Wt 90.7 kg
[~2022-07-15 07:22] MED LIST changes: +BSS IRR 500ML/OMIDRIA 4ML IRR BAG (OR ONLY) As Ordered ONE; +CEFUROXIME 1MG/0.1ML INTRACAMERAL INJ As Ordered ONE; +CYCLOPENTOLATE 1% OPHTH SOLN 2ML BTL OS SCH; +LIDOCAINE 1% SDV 5ML VIAL As Ordered ONE; +MIDAZOLAM INJ 2MG/2ML VIAL As Ordered ONE; +PHENYLEPHRINE 2.5% OPHTH SOL 2ML OS SCH; +PROPARACAINE 0.5% OPHTH SOL 15ML OS ONE; +TROPICAMIDE 1% OPHTH SOLN 15ML OS SCH; +UNRESOLVED CLARIFICATION ENTRY XX SCH; +VITA100093 PO; +fentaNYL 100 MCG/2 ML INJECTION As Ordered ONE
[2022-07-15 09:42] VITALS: BP 182/92
== END 2022-07-15 09:52 | disposition home or self-care (01) ==
LOC: M SDC 07:22
PROVIDERS: ATTEND Ophthalmology
DX: H25.12 Age-related nuclear cataract, left eye (principal); I10 Essential (primary) hypertension; J45.909 Unspecified asthma, uncomplicated; D83.9 Common variable immunodeficiency, unspecified; G47.33 Obstructive sleep apnea (adult) (pediatric); N40.0 Benign prostatic hyperplasia without lower urinary tract symptoms; Z79.899 Other long term (current) drug therapy; Z79.51 Long term (current) use of inhaled steroids; Z88.1 Allergy status to other antibiotic agents; Z88.8 Allergy status to other drugs, medicaments and biological substances
CPT/HCPCS: 66984; J0697; J1097; J2250; J3010; V2632

== ENCOUNTER → 2023-02-25 | Outpatient (REF) | payer MEDICARE, BC ==
[~2023-02-25] MED LIST changes: -BSS IRR 500ML/OMIDRIA 4ML IRR BAG (OR ONLY) As Ordered ONE; +CEFD1CAP9 PO; -CEFD300C41 PO; -CEFUROXIME 1MG/0.1ML INTRACAMERAL INJ As Ordered ONE; -CYCLOPENTOLATE 1% OPHTH SOLN 2ML BTL OS SCH; -LIDOCAINE 1% SDV 5ML VIAL As Ordered ONE; -MIDAZOLAM INJ 2MG/2ML VIAL As Ordered ONE; -PHENYLEPHRINE 2.5% OPHTH SOL 2ML OS SCH; -PROPARACAINE 0.5% OPHTH SOL 15ML OS ONE; -TROPICAMIDE 1% OPHTH SOLN 15ML OS SCH; -UNRESOLVED CLARIFICATION ENTRY XX SCH; -fentaNYL 100 MCG/2 ML INJECTION As Ordered ONE
== END ==
LOC: M LAB REF 12:51
PROVIDERS: ATTEND Physician Assistant
DX: J45.50 Severe persistent asthma, uncomplicated (principal)

== ENCOUNTER → 2023-03-09 | Outpatient (CLI) | payer MEDICARE, OTHER | LOC: M PLAIMG 14:54 | PROVIDERS: ATTEND Internal Medicine Pulmonary Disease | DX: R05.9 Cough, unspecified (principal); D83.9 Common variable immunodeficiency, unspecified; J45.50 Severe persistent asthma, uncomplicated; J98.4 Other disorders of lung ==

== ENCOUNTER → 2023-06-22 | Outpatient (CLI) | payer MEDICARE, OTHER ==
[2023-06-22 11:02] LABS: BASO # 0.1 10^3/uL (0.0-0.2); BASO % 1.5 % (0.0-1.0); EOS # 0.2 10^3/uL (0.0-0.5); EOS % 3.7 % (0.0-3.0); HEMATOCRIT 47.3 % (42.0-52.0); HEMOGLOBIN 15.4 g/dl (13.5-17.5); LYMPH # 1.5 10^3/uL (1.5-5.0); MEAN CORPUSCULAR HEMOGLOBIN 28.6 pg (27.0-33.0); MEAN CORPUSCULAR HGB CONC 32.6 g/dl (32.0-36.5); MEAN CORPUSCULAR VOLUME 87.8 fl (80.0-96.0); MONO # 0.4 10^3/uL (0.0-0.8); MONO % 9.5 % (2.0-8.0); NEUTROPHILS # 2.5 10^3/uL (1.5-8.5); NEUTROPHILS % 53.1 % (36.0-66.0); PLATELET COUNT, AUTOMATED 286 10^3/uL (150-450); RED BLOOD COUNT 5.39 10^6/uL (4.30-6.10); WHITE BLOOD COUNT 4.6 10^3/uL (4.0-10.0)
[2023-06-22 11:29] LABS: CREATININE, URINE 133.6 MG/DL; FREE T4 1.12 NG/DL (0.89-1.76); MAU/CREAT RATIO 5.9 MCG/MG (0.0-30.0); THYROID STIMULATING HORMONE 2.075 uIU/ML (0.55-4.78); TOTAL 25(OH) VITAMIN D 34.6 NG/ML (20.0-100.0)
[2023-06-22 11:32] LABS: C REACTIVE PROTEIN QUANTITATIV < 0.40 MG/DL (<1.0); VITAMIN B12 LEVEL 372 PG/ML (211-911)
[2023-06-22 11:33] LABS: HEMOGLOBIN A1c 5.6 % (4.0-6.0)
[2023-06-22 11:34] LABS: ALBUMIN 3.9 G/DL (3.2-5.2); ALKALINE PHOSPHATASE 52 U/L (46-116); ALT/SGPT 33 U/L (7.0-40); AST/SGOT 26 U/L (<34); BILIRUBIN,TOTAL 0.6 MG/DL (0.3-1.2); BLOOD UREA NITROGEN 17 MG/DL (9-23); CALCIUM LEVEL 8.7 MG/DL (8.3-10.6); CARBON DIOXIDE LEVEL 29 MMOL/L (20-31); CHLORIDE LEVEL 106 MMOL/L (98-107); CHOLESTEROL LEVEL 232 MG/DL (<200); CHOLESTEROL RISK RATIO 3.58 (<5); CREATININE FOR GFR 0.92 MG/DL (0.70-1.30); GLOMERULAR FILTRATION RATE > 60.0 (>42); GLUCOSE, FASTING 101 MG/DL (74-106); HDL CHOLESTEROL 64.7 MG/DL (>40); LDL CHOLESTEROL 142.9 MG/DL (<100); NON-HDL-C 167.3 MG/DL; POTASSIUM SERUM 4.8 MMOL/L (3.5-5.1); SODIUM LEVEL 142 MMOL/L (136-145); TOTAL PROTEIN 6.7 G/DL (5.7-8.2); TRIGLYCERIDES LEVEL 122 MG/DL (<150)
== END ==
LOC: M PLALAB 08:04
PROVIDERS: ATTEND Internal Medicine Hematology
DX: E78.00 Pure hypercholesterolemia, unspecified (principal); I10 Essential (primary) hypertension; G47.33 Obstructive sleep apnea (adult) (pediatric); G25.0 Essential tremor; R91.8 Other nonspecific abnormal finding of lung field; J45.30 Mild persistent asthma, uncomplicated; Z79.899 Other long term (current) drug therapy

== ENCOUNTER → 2023-12-08 | Outpatient (REF) | payer MEDICARE, OTHER ==
[~2023-12-08] MED LIST changes: -ROSU10TA6 PO; +ROSU10TA61 PO
== END ==
LOC: M SMT 09:56
PROVIDERS: ATTEND Physician Assistant Medical
DX: R30.0 Dysuria (principal)

== ENCOUNTER → 2023-12-30 | Outpatient (CLI) | payer MEDICARE, OTHER ==
[~2023-12-30] MED LIST changes: +BUDE180A2 INH; -BUDE180INH INH
[2023-12-30 11:20] LABS: BASO # 0.1 10^3/uL (0.0-0.2); BASO % 1.9 % (0.0-1.0); C REACTIVE PROTEIN QUANTITATIV < 0.40 MG/DL (<1.0); EOS # 0.2 10^3/uL (0.0-0.5); EOS % 3.8 % (0.0-3.0); HEMATOCRIT 47.7 % (42.0-52.0); HEMOGLOBIN 15.7 g/dl (13.5-17.5); LYMPH # 1.3 10^3/uL (1.5-5.0); LYMPH % 27.5 % (24.0-44.0); MEAN CORPUSCULAR HEMOGLOBIN 28.9 pg (27.0-33.0); MEAN CORPUSCULAR HGB CONC 32.9 g/dl (32.0-36.5); MEAN CORPUSCULAR VOLUME 87.7 fl (80.0-96.0); MONO # 0.4 10^3/uL (0.0-0.8); MONO % 8.9 % (2.0-8.0); NEUTROPHILS # 2.7 10^3/uL (1.5-8.5); NEUTROPHILS % 57.7 % (36.0-66.0); PLATELET COUNT, AUTOMATED 300 10^3/uL (150-450); RED BLOOD COUNT 5.44 10^6/uL (4.30-6.10); WHITE BLOOD COUNT 4.7 10^3/uL (4.0-10.0)
[2023-12-30 11:22] LABS: ALBUMIN 3.7 G/DL (3.2-5.2); ALKALINE PHOSPHATASE 61 U/L (40-129); ALT/SGPT 31 U/L (7.0-40); AST/SGOT 18 U/L (<34); BILIRUBIN,TOTAL 0.4 MG/DL (0.3-1.2); BLOOD UREA NITROGEN 17 MG/DL (9-23); CALCIUM LEVEL 9.4 MG/DL (8.3-10.6); CARBON DIOXIDE LEVEL 31 MMOL/L (20-31); CHLORIDE LEVEL 108 MMOL/L (98-107); CHOLESTEROL LEVEL 248 MG/DL (<200); CHOLESTEROL RISK RATIO 3.91 (<5); CREATININE FOR GFR 0.87 MG/DL (0.70-1.30); GLOMERULAR FILTRATION RATE > 60.0 (>42); GLUCOSE, FASTING 109 MG/DL (74-106); HDL CHOLESTEROL 63.4 MG/DL (>40); LDL CHOLESTEROL 168.2 MG/DL (<100); NON-HDL-C 184.6 MG/DL; POTASSIUM SERUM 4.7 MMOL/L (3.5-5.1); SODIUM LEVEL 143 MMOL/L (136-145); TOTAL PROTEIN 6.9 G/DL (5.7-8.2); TRIGLYCERIDES LEVEL 82 MG/DL (<150)
[2023-12-30 11:23] LABS: FREE T4 1.19 NG/DL (0.89-1.76); THYROID STIMULATING HORMONE 2.236 uIU/ML (0.55-4.78); TOTAL 25(OH) VITAMIN D 41.2 NG/ML (20.0-100.0)
[2023-12-30 11:24] LABS: VITAMIN B12 LEVEL 429 PG/ML (211-911)
[2023-12-30 11:38] LABS: MAU/CREAT RATIO 3.7 MCG/MG (0.0-30.0)
[2023-12-30 12:20] LABS: HEMOGLOBIN A1c 5.4 % (4.0-6.0)
== END ==
LOC: M PLALAB 08:35
PROVIDERS: ATTEND Student in an Organized Health Care Education/Training Program
DX: E78.00 Pure hypercholesterolemia, unspecified (principal); G25.0 Essential tremor; I10 Essential (primary) hypertension; J45.909 Unspecified asthma, uncomplicated; D84.9 Immunodeficiency, unspecified; G47.00 Insomnia, unspecified; Z79.899 Other long term (current) drug therapy

== ENCOUNTER → 2024-03-08 | Outpatient (CLI) | payer MEDICARE, OTHER ==
[~2024-03-08] MED LIST changes: -ADV250INH INH; +ADVA1AER9 INH
[2024-03-08 14:27] LABS: ALBUMIN 3.8 G/DL (3.2-5.2); ALKALINE PHOSPHATASE 64 U/L (40-129); ALT/SGPT 43 U/L (7.0-40); AST/SGOT 29 U/L (<34); BILIRUBIN,DIRECT < 0.1 MG/DL (<0.4); BILIRUBIN,TOTAL 0.3 MG/DL (0.3-1.2); CHOLESTEROL LEVEL 215 MG/DL (<200); CHOLESTEROL RISK RATIO 3.31 (<5); HDL CHOLESTEROL 64.9 MG/DL (>40); LDL CHOLESTEROL 104.1 MG/DL (<100); NON-HDL-C 150.1 MG/DL; TOTAL PROTEIN 7.4 G/DL (5.7-8.2); TRIGLYCERIDES LEVEL 230 MG/DL (<150)
== END ==
LOC: M PLALAB 10:34
PROVIDERS: ATTEND Family Medicine
DX: E78.5 Hyperlipidemia, unspecified (principal)

== ENCOUNTER → 2024-03-21 | Outpatient (CLI) | payer MEDICARE, OTHER ==
[2024-03-21 10:32] LABS: CHOLESTEROL RISK RATIO 3.18 (<5); HDL CHOLESTEROL 67.4 MG/DL (>40); LDL CHOLESTEROL 131.6 MG/DL (<100); NON-HDL-C 147.6 MG/DL
== END ==
LOC: M PLALAB 08:57
PROVIDERS: ATTEND Student in an Organized Health Care Education/Training Program
DX: E78.5 Hyperlipidemia, unspecified (principal)

== ENCOUNTER → 2025-02-22 | Outpatient (CLI) | payer MEDICARE, OTHER ==
[~2025-02-22] MED LIST changes: -AMBI10TA PO; -FLOM0.4C39 PO; -ROSU10TA61 PO; +ROSU10TA90 PO; +TAMS-18 PO; +ZOLP-533 PO; +ZOLP10TA11 PO; -ZOLP10TA2 PO
== END ==
LOC: M WUC 08:41
PROVIDERS: ATTEND Internal Medicine Pulmonary Disease
DX: R05.9 Cough, unspecified (principal); J45.50 Severe persistent asthma, uncomplicated; R06.00 Dyspnea, unspecified